=== PATIENT | female | born 1990 | race Caucasian/White ===

== ENCOUNTER 2024-04-01 07:13 | Inpatient (IN) | payer OTHER, SELFPAY ==
[2024-04-01] VITALS (34 sets, daily range): BP systolic 101–147; BP diastolic 58–87; PULSE 52–84; RESP 15–17; TEMP 36.6–37; O2SAT 99–100; BMI 30.4
--- NOTE | 2024-04-01 08:00 | PCM.HP.OB ---
HPI - General General Date of Admission: 04/01/24 HPI Narrative DAIANA CLARK, is a 33 F at 39 weeks gestation who presents for scheduled induction of labor. Maternal Data Information YESSY Calculator Estimated Delivery Date Method Current WG Current Estimate 04/08/24 Manual 39w 0d PFSH PFSH Allergy/AdvReac Type Severity Reaction Status Date / Time No Known Allergies Allergy Verified 04/01/24 07:15 NST FHR Rate Baby A Baseline: 140 Variability:: Moderate Accelerations:: 15 x 15 Decelerations:: None NST Reactive:: Yes FHR Category:: Category I Uterine Activity:: TOCO shows irregular contractions ROS Eyes Eyes: Denies blurry vision, change in vision or spots in vision ENT HEENT: Denies dizziness or headache(s) Cardiovascular Cardiovascular: Denies abdominal pain, chest pain or dyspnea Respiratory/Chest Respiratory/Chest: Denies cough, dyspnea, shortness of breath at rest or shortness of breath with exertion Gastrointestinal Gastrointestinal: Denies abdominal pain, diarrhea or vomiting Genitourinary Genitourinary: Denies change in urinary stream, difficulty urinating or dysuria Musculoskeletal Musculoskeletal: Reports none Integumentary Integumentary: Denies rash Neurologic Neurologic: Denies dizziness, headache(s), memory loss or weakness Psychiatric Psychiatric: Reports none Vital Signs Vital Signs Vital Signs: 04/01/24 07:41 04/01/24 07:41 Pulse Rate 68 Blood Pressure 126/87 H BP Systolic 126 BP Diastolic 87 Weight Weight: 172 lb 2 oz Body Mass Index (BMI) 30.4 Physical Exam Const alert, oriented x3 and no apparent distress General Appearance: cooperative Orientation / Consciousness: awake Exam Limitations: no limitations HEENT normocephalic Head and Scalp: normal to inspection Eyes General Eye: normal appearance of both eyes Neck full ROM and no lymphadenopathy Lymph Lymphatic: no lymphadenopathy noted Chest inspection of chest normal Resp normal respiratory effort, normal air movement and clear to auscultation bilaterally Effort and Inspection: able to speak in complete sentences and symmetric chest movement Cardio regular rate and regular rhythm GI normal to inspection, nondistended, normoactive bowel sounds Manual OB Exam: presentation cephalic Back/Spine normal ROM Extremity full ROM and no calf tenderness Skin no rashes or lesions noted General Skin Exam: no breakdown Neuro oriented x3 and CN's II-XII intact bilaterally Psych mental status grossly normal and thought process normal Labs Labs Labs: Blood Type Pending Antibody Screen Pending Hct Pending Hgb Pending Syphilis Total Ab Pending GBS negative Assessment & Plan (1) 39 weeks gestation of : (2) Encounter for elective induction of labor: (3) Hypothyroid: (4) Multigravida, antepartum: PLAN: Plan GBS negative Admit to labor and delivery Routine labs Start Pitocin at 2 mu/min and increase per orders Pain medications / epidural when indicated Dr. Verduzco notified of admission and is collaborating physician
[2024-04-01 08:01] LABS: Absolute Lymphocyte Count 1.28 X10^3/uL (0.83-4.51); Absolute Neutrophil Count 4.5 X10^3/uL (2.0-7.7); Basophil# 0.01 X10^3/uL; Basophil% 0.2 % (0-1); Eosinophil# 0.03 X10^3/uL; Eosinophils% 0.5 % (0-5); Hematocrit 31.2 % (37-47); Hemoglobin 9.8 g/dL (12.0-15.0); Lymphocyte # 1.28 X10^3/ul (0.83-4.51); Lymphocyte % 19.7 % (19-41); Mean Corp Hgb Conc 31.4 g/dL (32-36); Mean Corpuscular Hgb 26.9 pg (27.0-32.0); Mean Corpuscular Volume 85.7 fL (81-99); Mean Platelet Vol. 10.7 fl (6.2-12.0); Monocyte# 0.66 X10^3/uL; Monocyte% 10.2 % (0-10); NRBC Flagged by Analyzer 0 % (0-5); Neutrophil % 69.2 % (47-70); Platelet Count 249 K/mm3 (150-450); RBC Distribution Width CV 13.3 % (11.6-14.6); RBC Distribution Width SD 41.9 fl (35.1-43.9); Red Blood Count 3.64 M/mm3 (4.2-5.4); White Blood Count 6.5 K/mm3 (4.4-11.0)
[2024-04-01] MEDS: Lactated Ringers 1,000 ML 50 ML IV (08:03)
[2024-04-01] MEDS: Oxytocin 15 Units/NS 250ml 15 UNITS/250 ML IV.SOLN 2 UNITS IV (08:03)
[2024-04-01 09:14] LABS: Syphilis Antibodies Non-reactive
[2024-04-01] MEDS: Lactated Ringers 1,000 ML 999 ML IV (15:04)
[2024-04-01] MEDS: fentaNYL-bupivacaine (epidural) 100 ML BAG EPIDURAL (16:23)
--- NOTE | 2024-04-01 17:13 | PN.OBGYN_ITS ---
Subjective Subjective Patient seen at bedside. Comfortable with epidural. Occasionally feeling pressure. Objective Data Objective Data Vital Signs: Vital Signs Temp Pulse Resp BP Pulse Ox 98.6 F 75 16 122/71 H 100 04/01/24 16:22 04/01/24 16:38 04/01/24 16:38 04/01/24 16:38 04/01/24 16:38 Weight: 172 lb 2 oz Body Mass Index (BMI) 30.4 Intake & Output: Intake and Output for Last 24 Hours 03/30/24 03/31/24 04/01/24 23:59 23:59 23:59 Intake Total 1763.90 / 1763.90 Output Total 350 / 350 Balance 1413.90 / 1413.90 Lab / Micro Data 04/01/24 07:35 Labs: Laboratory Results - last 24 hr 04/01/24 07:35: WBC 6.5, RBC 3.64 L, Hgb 9.8 L, Hct 31.2 L, MCV 85.7, MCH 26.9 L , MCHC 31.4 L, RDW Std Deviation 41.9, RDW Coeff of Azra 13.3, Plt Count 249, MPV 10.7, Immature Gran % (Auto) 0.200, Neut % (Auto) 69.2, Lymph % (Auto) 19.7, M juliana % (Auto) 10.2 H, Eos % (Auto) 0.5, Baso % (Auto) 0.2, Absolute Neuts (auto) 4.5, Absolute Lymphs (auto) 1.28, Nucleated RBC % 0, Syphilis Total Ab Non- reactive, Blood Type O POSITIVE, Antibody Screen NEGATIVE Assessment & Plan (1) Multigravida, antepartum: (2) Hypothyroid: (3) Encounter for elective induction of labor: (4) 39 weeks gestation of : (5) Anemia affecting : COMMENT: Hgb. 9.8 on admission PLAN: Plan CE /-2 AROM for clear fluid IUPC placed Pitocin at 8 mu/min- continue to increase per policy Anticipate
--- NOTE | 2024-04-01 18:46 | OB.VAGDELI_ITS ---
Assessment & Plan (1) (spontaneous vaginal delivery): (2) Laceration, obstetrical, second degree: (3) Hypothyroid: (4) Anemia affecting : COMMENT: Hgb. 9.8 on admission Maternal Data Information YESSY Calculator Estimated Delivery Date Method Current WG Current Estimate 04/08/24 Manual 39w 0d Vaginal Delivery Maternal Presentation Maternal Presentation: Elective Induction Type of Induction: Pitocin and Amniotomy Vaginal Delivery Information Procedure Performed: Spontaneous Vaginal Delivery Surgeon/Practitioner: Alicja Whitman Date of Procedure: 04/01/24 Pre-Procedure Diagnosis: Term gestation, Post-Procedure Diagnosis: , Live infant Type of anesthesia: Epidural Estimated Blood Loss: 150 Time of Delivery: 18:29 Findings Description of procedure: Patient progressed to complete dilation. With good maternal effort, head delivered followed by anterior shoulder and remainder of body without any force, delay, or traction. hand up next to face during delivery. Vigorous male was delivered atraumatically and placed on maternal abdomen. Pitocin IV started for active management of the third stage of labor. 3 vessel cord clamped and cut after delay and infant placed immediately skin to skin with patient. Cord blood collected. Placenta delivered spontaneously and intact. A second degree laceration was repaired in usual fashion using 3-0 Vicryl Rapid. Hemostasis obtained. Bladder emptied for 300 cc clear/yellow urine. Vaginal sweep performed. Fundus is firm 2 below U and bleeding is hemostatic. Sponge and sharps counts correct. Patient and bonding well at this time. Dr. Verduzco notified of delivery. Routine post orders placed. Presentation: Vertex Amniotic Membrane Rupture Type: Artificial Amniotic Fluid Description: Clear Placental Delivery Description: Spontaneous Placenta Disposition: [facility] Specimen collected: No Cord Vessel Description: 3 Vessels Cord Entanglement: None Nuchal Cord Compression: Without compression A Gender: Male (1 minute): 8 (5 minute): 9 Delayed Cord Clamping: Yes Social Human Services Assistants felled seam operator chainstitch: No Post Vaginal Deli Medications given after delivery: IV Pitocin Episiotomy Description: None Laceration: 2nd degree Complication Complications: No
[2024-04-01] MEDS: Oxytocin 15 Units/NS 250ml 15 UNITS/250 ML IV.SOLN 83 UNITS IV (19:01)
[2024-04-02] VITALS (9 sets, daily range): BP systolic 104–117; BP diastolic 66–72; PULSE 57–69; RESP 15–17; TEMP 35.6–36.8; O2SAT 96–97
[2024-04-02] MEDS: Acetaminophen 500 MG Tablet 1000 MG PO ×2 (05:46→13:54)
[2024-04-02] MEDS: Levothyroxine 75 MCG Tablet PO (05:46)
[2024-04-02 06:57] LABS: Absolute Lymphocyte Count 1.31 X10^3/uL (0.83-4.51); Absolute Neutrophil Count 5.9 X10^3/uL (2.0-7.7); Basophil# 0.01 X10^3/uL; Basophil% 0.1 % (0-1); Eosinophil# 0.03 X10^3/uL; Eosinophils% 0.4 % (0-5); Hematocrit 27.3 % (37-47); Hemoglobin 8.7 g/dL (12.0-15.0); Lymphocyte # 1.31 X10^3/ul (0.83-4.51); Lymphocyte % 16.2 % (19-41); Mean Corp Hgb Conc 31.9 g/dL (32-36); Mean Corpuscular Hgb 27.2 pg (27.0-32.0); Mean Corpuscular Volume 85.3 fL (81-99); Mean Platelet Vol. 10.6 fl (6.2-12.0); Monocyte# 0.76 X10^3/uL; Monocyte% 9.4 % (0-10); NRBC Flagged by Analyzer 0 % (0-5); Neutrophil # 5.94 X10^3/uL (2.7-7.7); Neutrophil % 73.5 % (47-70); Platelet Count 204 K/mm3 (150-450); RBC Distribution Width CV 13.4 % (11.6-14.6); RBC Distribution Width SD 41.8 fl (35.1-43.9); White Blood Count 8.1 K/mm3 (4.4-11.0)
--- NOTE | 2024-04-02 07:33 | DS.PCM_ITS ---
Providers Date of Admission: 04/01/24 Reason For Visit: VAG DELIVERY Diagnosis Discharge Diagnosis (1) (spontaneous vaginal delivery): Status: Acute Code(s): O80 - Encounter for full-term uncomplicated delivery (2) Laceration, obstetrical, second degree: Status: Acute Code(s): O70.1 - Second degree perineal laceration during delivery (3) Hypothyroid: Status: Acute Code(s): E03.9 - Hypothyroidism, unspecified (4) Anemia affecting : Status: Acute Code(s): O99.019 - Anemia complicating , unspecified trimester Plan PPD 1 Routine care support Desires discharge home at 24 hours Medications at Discharge Home Medications levothyroxine 50 mcg tablet 50 mcg PO DAILY hypothyroid 04/01/24 levothyroxine 75 mcg tablet (Synthroid) 75 mcg PO DAILY hypothyroid 04/01/24 acetaminophen 500 mg tablet 1,000 mg (2 x 500 mg) PO Q6H PRN PRN Pain 1-10 Or Fever #0 tabs 04/02/24 naproxen 500 mg tablet 500 mg PO Q8H PRN PRN Pain Score 1-10 #0 tabs 04/02/24 Hospital Course Operations None Procedures None Summary of Care Provided Minutes Spent on Discharge: 15 Hospital Course: Patient had vaginal delivery. Hospital course was uneventful. Physical Exam Narrative Patient seen at bedside. Denies pain. Ambulating and voiding without difficulty. Lochia decreased. Desires discharge home today. Const alert and oriented x3 General Appearance: Negative for in distress HEENT normocephalic Eyes General Eye: normal appearance of both eyes Neck General: normal visual inspection Chest Chest: symmetrical chest wall rise Resp normal respiratory effort and normal air movement Effort and Inspection: symmetric chest movement; Negative for tachypneic Auscultation: clear to auscultation bilaterally Cardio regular rate and regular rhythm Peripheral Pulses: pulses 2+ throughout GI normal to inspection, nondistended, normoactive bowel sounds Narrative: Ice to perineum OB / External & Speculum: vaginal bleeding and other Lochia decreasing Uterus Palpation: uterus fundus firm (Below U) Extremity normal to inspection, full ROM and normal capillary refill Skin no rashes or lesions noted Neuro oriented x3, CN's II-XII intact bilaterally and gait normal Psych mental status grossly normal, thought process normal and activity/motor behavior normal Weight / BMI Weight Weight: 172 lb 2 oz Body Mass Index (BMI) 30.4 ABG / Lab / Microbiology Data 04/02/24 06:50 Laboratory: Laboratory Results - last 24 hr 04/01/24 07:35: WBC 6.5, RBC 3.64 L, Hgb 9.8 L, Hct 31.2 L, MCV 85.7, MCH 26.9 L , MCHC 31.4 L, RDW Std Deviation 41.9, RDW Coeff of Azra 13.3, Plt Count 249, MPV 10.7, Immature Gran % (Auto) 0.200, Neut % (Auto) 69.2, Lymph % (Auto) 19.7, M juliana % (Auto) 10.2 H, Eos % (Auto) 0.5, Baso % (Auto) 0.2, Absolute Neuts (auto) 4.5, Absolute Lymphs (auto) 1.28, Nucleated RBC % 0, Syphilis Total Ab Non- reactive, Blood Type O POSITIVE, Antibody Screen NEGATIVE 04/02/24 06:50: WBC 8.1, RBC 3.20 L, Hgb 8.7 L, Hct 27.3 L, MCV 85.3, MCH 27.2, MCHC 31.9 L, RDW Std Deviation 41.8, RDW Coeff of Azra 13.4, Plt Count 204, MPV 10.6, Immature Gran % (Auto) 0.400, Neut % (Auto) 73.5 H, Lymph % (Auto) 16.2 L, Hardeman % (Auto) 9.4, Eos % (Auto) 0.4, Baso % (Auto) 0.1, Absolute Neuts (auto) 5.9, Absolute Lymphs (auto) 1.31, Nucleated RBC % 0 D/C Instructions Discharge Diet: No restrictions Discharge Activity: Return to Normal Activity, No Restrictions, May Drive, May Shower and May Take a Tub Bath (Warm water only. No bath salts, soaps, bubbles) May resume sexual activity in: 6-8 weeks Weight Bearing Status: Weight bearing as tolerated Call your doctor if you observe: Fever of 101 or Higher, Inability to urinate, Using more than 1 pad per hour, Shortness of breath, Dizziness, Chest pain, Calf discomfort and Uncontrolled pain DC O2, CPAP, BIPAP Needs Home O2 Discharge instructions: No Please Follow Up With: [facility] [facility] When: 2 weeks in office or virtual Meaningful Use Info Meaningful Use Meaningful Use Diagnoses (Choose all that apply): None applicable Ischemic Stroke Statin Dosing Therapy Reference: STATIN DOSE THERAPY REFERENCE: * Patients > 75 years receive moderate or high dose statin therapy. * Patients 75 years or YOUNGER should receive HIGH intensity statin dose unless contraindicated. You will be required to document reason for non-treatment if statin daily dose does not meet guidelines. HIGH DOSE STATIN THERAPY DAILY Atorvastatin > than or = to 40 mg Rosuvastatin > than or = to 20 mg Amlodipine + Atorvastatin > than or = to 2.5/40 mg Ezetimibe + Simvastatin 10/80 mg Simvastatin 80mg Discharge Plan Admission Admit Date/Time: 04/01/24 07:13 Primary Reason for Your Visit: Labor and Delivery Attending Provider: Alicja Whitman Discharge Orders/Prescriptions Prescriptions: New acetaminophen 500 mg Tablet 1,000 mg PO Q6H PRN PRN (Reason: Pain 1-10 Or Fever) Qty: 0 0RF naproxen 500 mg Tablet 500 mg PO Q8H PRN PRN (Reason: Pain Score 1-10) Qty: 0 0RF Continued levothyroxine [Synthroid] 75 mcg tablet 75 mcg PO DAILY Patient Comments: monday-monday levothyroxine 50 mcg tablet 50 mcg PO DAILY Patient Comments: monday-monday Disposition Disposition (needs filled in before D/C Order can be placed): Home, Self Care
--- NOTE | 2024-04-04 14:58 | CASEMGMT ---
Social Work Assessment Labor and Delivery Unit Patient Address:[address] [place] [address] [address] [place] [address] Phone number:[phone] Date of Referral: 04/01/24 Time of Referral: 2010 Referred By: Alicja Whitman Date of Intervention: 04/02/24 Time of Intervention: 1200 Reason for Referral: anxiety, depression Sw completed chart review and acknowledges social work consult due to maternal mental health history. Sw presented to bedside and introduced self to mother of baby (MOB- Ana) and father of baby (FOB- Jose). Sw explained reason for sw involvement and completed psychosocial assessment. History obtained from: medical records, MOB and FOB. Household composition: Currently residing in the family home is MICHELLE FAUSTIN, their two older children: Rufino (6) and Lydia (2). baby to be added to residence when ready for discharge. Parents deny any issues or concerns with housing. Patient's parent/guardian status: RAMIN states that she and MICHELLE have been together for 10 years after meeting in high school. This is third child for both parents together. No concerns with domestic violence or intimate partner violence. Medical History: RAMIN is 33 year old female who is 3, para 2- now 3 following labor and delivery of . RAMIN received routine care during with [facility]. RAMIN presented to hospital for scheduled induction of labor at 39 weeks gestation. Baby was born via vaginal delivery on 04/01/24. Baby boy, Johnathon Michel, was born weighing 7lb 5oz with apgars of 8 and 9 at one and five minutes of life, respectfully. RAMIN states that she is breast feeding and that is going well. Baby will be followed by Dr. Pop for pediatrics. Educational Status: Both parents graduated from high school and have some college education, but no degree. No problems with reading, learning or comprehension. Financial Status: Both parents are employed outside of the home. FOB works in a factory and also on a farm parts designer. MOB is a public interviewer. Infant Supplies: Parents have all necessary baby supplies, including: car seat, safe sleep space, clothes, diapers and wipes. Childcare/Caregiver(s): MOB will be the primary caregiver to baby, along with FOB. Transportation: Both parents have their drivers license and reliable means of transportation. No barriers. Programs/Agencies Involved: Parents are not connected to any community agencies that assist them financially. Children Services/Legal Issues: Parents deny history of children services involvement, no issues or concerns warranting referral to be made at this time. Behavioral Health Issues: Mental Health History: FOB denies mental health history. MOB states that she has been diagnosed with anxiety and is prescribed lexapro by her primary care doctor. MOB states that she did have some depression, but it looked like traveling anxiety, she did not want to be away from her home. MOB states that she feels really good right now, she denies feeling anxious, sad or depressed. MOB states that she is going to take it a day at a time. Substance Use History: Parents deny substance use prior to and during Family History: Parents deny family history of substance use, addiction or significant mental health diagnoses. Drug Screens: No drug screens observed during chart review. Family/Social Stressors: Parents deny any issues, concerns or stressors at this time. Support Systems: MOB identifies that grandparents are their biggest supports and that is who is helping with their two older children while they are admitted. Depression/Shaken Baby/Safe Sleeping: Sw educated parents on signs and symptoms of baby blues and mood and anxiety disorders to be mindful of during post depression. FOB states that he would for sure recognize if MOB were to struggle with her mental health during this period. Sw educated parents on shaken baby prevention and ABCs of safe sleep. Parents express understanding. ASSESSMENT: MOB and baby admitted following labor and delivery of . MOB and FOB both talkative, receptive to sw involvement and engaging throughout completion of assessment. FOB observed to be holding baby lovingly and appropriately. Parents report to having all necessary baby supplies and natural supports in place. MOB with mental health history of anxiety and some anxiety. MOB states that she is able to recognize when she is struggling and knows who to reach out and talk to. Plan: MOB and baby able to be discharged when medically ready for discharge. No other services requested or indicated. Marco Gee, SCUBA DIVING TEACHER, MOTHER'S HELPER
== END 2024-04-02 19:50 | disposition home or self-care (01) | DRG 807 ==
PROVIDERS: Admitting Provider Advanced Practice Midwife; Visit Provider Advanced Practice Midwife
DX: O99.02 Anemia complicating childbirth (principal); Z37.0 Single live birth; E03.9 Hypothyroidism, unspecified; O99.284 Endocrine, nutritional and metabolic diseases complicating childbirth; O70.1 Second degree perineal laceration during delivery; Z3A.39 39 weeks gestation of pregnancy; Z79.890 Hormone replacement therapy
CPT/HCPCS: 36415; 59025; 59050; 85025; 86780; 86850; 86900; 86901; 99221; G0378